=== PATIENT | male | born 1985 | race Caucasian/White ===

== ENCOUNTER 2017-09-17 11:29 | Emergency (ER) | payer OTHER ==
[~2017-09-17] VITALS: Ht 182.9 cm; Wt 172.4 kg
[2017-09-17] MEDS ORDERED: DEPAKOTE ER250 MG (11:40)
[2017-09-17] MEDS ORDERED: KETO10TA2 PO (14:24)
[2017-09-17] MEDS ORDERED: ORPHENADRINE C100 MG PO (14:24)
== END 2017-09-17 15:12 | disposition home or self-care (01) ==
LOC: ER 11:29
DX: R53.1 Weakness (principal); M54.5 Low back pain

== ENCOUNTER 2021-04-05 09:20 | Emergency (ER) | payer OTHER ==
[~2021-04-05] VITALS: Ht 182.9 cm; Wt 181.9 kg
[~2021-04-05 09:20] MED LIST: DEPAKOTE ER250 MG; KETO10TA2 PO; ORPHENADRINE C100 MG PO
[2021-04-05] MEDS ORDERED: HALOPERIDOL2 MG PO (09:27)
[2021-04-05] MEDS ORDERED: HIBICLENS118 ML TOP (13:05)
[2021-04-05] MEDS ORDERED: MUPIROCIN22 GM TOP (13:05)
[2021-04-05] MEDS ORDERED: AMOX-CLAV 875-1 EACH PO (13:05)
== END 2021-04-05 13:15 | disposition home or self-care (01) ==
LOC: ER 09:20
DX: L03.811 Cellulitis of head [any part, except face] (principal)

== ENCOUNTER 2022-11-19 08:52 | Emergency (ER) | payer OTHER ==
[~2022-11-19] VITALS: Ht 185.4 cm; Wt 186.0 kg
[~2022-11-19 08:52] MED LIST changes: +AMOX-CLAV 875-1 EACH PO; +HALOPERIDOL2 MG PO; +HIBICLENS118 ML TOP; +MUPIROCIN22 GM TOP
[2022-11-19] MEDS ORDERED: ATORVASTATIN CA20 MG PO (09:10)
[2022-11-19] MEDS ORDERED: PEPCID AC10 MG PO (09:10)
[2022-11-19] MEDS ORDERED: METFORMIN HCL500 M3 PO (09:11)
[2022-11-19] MEDS ORDERED: ANALPRAM HC 2.530 GM RECTAL (09:25)
[2022-11-19] MEDS ORDERED: DULCOLAX STOOL100 M1 PO (09:25)
== END 2022-11-19 09:34 | disposition home or self-care (01) ==
LOC: ER 08:52
DX: K64.9 Unspecified hemorrhoids (principal)

== ENCOUNTER 2022-11-29 05:51 | Emergency (ER) | payer OTHER ==
[~2022-11-29] VITALS: Ht 185.4 cm; Wt 186.0 kg
[~2022-11-29 05:51] MED LIST changes: +ANALPRAM HC 2.530 GM RECTAL; +ATORVASTATIN CA20 MG PO; +DULCOLAX STOOL100 M1 PO; +METFORMIN HCL500 M3 PO; +PEPCID AC10 MG PO
== END 2022-11-29 07:16 | disposition home or self-care (01) ==
LOC: ER 05:51
DX: K64.8 Other hemorrhoids (principal)

== ENCOUNTER 2023-04-13 08:37 | Emergency (ER) | payer OTHER ==
[~2023-04-13] VITALS: Ht 185.4 cm; Wt 182.8 kg
[2023-04-13 11:48] LABS: HEMATOCRIT 37.9 % (39.0-48.0); HEMOGLOBIN 12.4 g/dL (13-16.00); MEAN CELL VOLUME 80.5 fL (80.0-100.00); MEAN CORPUSCULAR HEMOGLOBIN 26.4 pg (27.00-32.0); MEAN CORPUSCULAR HGB CONC 32.8 g/dl (32.0-36.0); PLATELET COUNT 220 K/uL (150-450); RED BLOOD COUNT 4.71 M/uL (4.00-6.00)
[2023-04-13 12:42] LABS: PH,URINE 5.5 (5.0-8.0); URINE APPEARANCE Cloudy; URINE BILIRRUBIN Negative (NEGATIVE); URINE BLOOD Small; URINE COLOR Yellow; URINE GLUCOSE Negative (NEGATIVE); URINE LEUKOCYTE Negative; URINE NITRATE Negative; URINE PROTEIN Negative (NEGATIVE)
[2023-04-13 12:46] LABS: URINE BACTERIA 36.5 uL (0.0-1933); URINE EPITHELIAL CELLS 13.5 uL (0.0-38.8); URINE RBC 85.2 uL (0.0-20.8); URINE WBC 29.1 uL (0.0-23.2)
[2023-04-13 13:14] LABS: ALBUMIN 3.3 gm/dL (3.4-5.0); BILIRUBIN TOTAL 0.3 mg/dL (0.3-1.2); CALCIUM 9.1 mg/dL (8.5-10.1); CREATININE SERUM 0.93 mg/dL (0.70-1.30); GFR 90.93; GLOBULINA 4.3 G/DL (2.4-3.5); POTASSIUM 4.04 mEq/L (3.5-5.1); TOTAL PROTEIN 7.6 gm/dL (6.4-8.2)
[2023-04-13] MEDS ORDERED: CIPRO500 MG PO (15:36)
[2023-04-13] MEDS ORDERED: IBU800 MG PO (15:36)
== END 2023-04-13 15:58 | disposition home or self-care (01) ==
LOC: ER 08:37
PROVIDERS: General Practice
DX: N39.0 Urinary tract infection, site not specified (principal); E11.9 Type 2 diabetes mellitus without complications; Z79.84 Long term (current) use of oral hypoglycemic drugs

== ENCOUNTER → 2023-06-11 | Emergency (ER) | payer OTHER ==
[~2023-06-11] VITALS: Ht 185.4 cm; Wt 181.4 kg
[~2023-06-11] MED LIST changes: +CIPRO500 MG PO; +IBU800 MG PO; +LACTOBACILLUS ACIDOPHILUS 1 CAP CAP PO STA
[2023-06-11 10:37] LABS: HEMATOCRIT 38.7 % (39.0-48.0); HEMOGLOBIN 12.7 g/dL (13-16.00); MEAN CELL VOLUME 77.8 fL (80.0-100.00); MEAN CORPUSCULAR HEMOGLOBIN 25.5 pg (27.00-32.0); MEAN CORPUSCULAR HGB CONC 32.8 g/dl (32.0-36.0); PLATELET COUNT 231 K/uL (150-450); RED BLOOD COUNT 4.98 M/uL (4.00-6.00); RED CELL DISTRIBUTION WIDTH 16.5 % (11.5-14.5)
[2023-06-11 10:59] LABS: CREATININE SERUM 0.91 mg/dL (0.70-1.30); GFR 93.24; POTASSIUM 4.03 mEq/L (3.5-5.1)
== END | disposition home or self-care (01) ==
LOC: ER 09:27
PROVIDERS: General Practice
DX: R19.7 Diarrhea, unspecified (principal); E11.9 Type 2 diabetes mellitus without complications; Z79.84 Long term (current) use of oral hypoglycemic drugs

== ENCOUNTER 2024-06-01 08:36 | Emergency (ER) | payer OTHER ==
[~2024-06-01] VITALS: Ht 185.4 cm; Wt 182.3 kg
[~2024-06-01 08:36] MED LIST changes: +HALOPERIDO100 MG/1 M IM; -LACTOBACILLUS ACIDOPHILUS 1 CAP CAP PO STA; +METFORMIN HCL1000 M2 PO
[2024-06-01] MEDS ORDERED: LIPITOR20 MG PO (08:47)
[2024-06-01] MEDS ORDERED: KETOROLAC TROMETHAMINE 60 MG VIAL IM ONE ×2 (10:39→10:45)
== END 2024-06-01 14:06 ==
LOC: ER 08:39
DX: M54.59 Other low back pain (principal); M25.562 Pain in left knee
CPT/HCPCS: 72100; 73560; 96372; 99283; J1885

== ENCOUNTER 2024-07-05 07:47 | Emergency (ER) | payer OTHER ==
[~2024-07-05] VITALS: Ht 185.4 cm; Wt 182.3 kg
[~2024-07-05 07:47] MED LIST changes: +LIPITOR20 MG PO
[2024-07-05] MEDS ORDERED: TRADJENTA5 MG (08:04)
[2024-07-05] MEDS ORDERED: TRIAMCINOLONE ACETONIDE 40 MG/ML VIAL IM STA (08:55)
== END 2024-07-05 09:14 | disposition home or self-care (01) ==
LOC: ER 07:49
DX: M25.569 Pain in unspecified knee (principal); E11.9 Type 2 diabetes mellitus without complications; Z79.84 Long term (current) use of oral hypoglycemic drugs

== ENCOUNTER 2024-12-13 09:26 | Emergency (ER) | payer OTHER ==
[~2024-12-13] VITALS: Ht 182.9 cm; Wt 180.5 kg
[~2024-12-13 09:26] MED LIST changes: +TRADJENTA5 MG
== END 2024-12-13 12:00 | disposition home or self-care (01) ==
LOC: ER 09:26
DX: G89.11 Acute pain due to trauma (principal); M79.676 Pain in unspecified toe(s)

== ENCOUNTER 2025-03-26 19:17 | Emergency (ER) | payer OTHER ==
[~2025-03-26] VITALS: Ht 185.4 cm; Wt 181.4 kg
[2025-03-26 20:07] VITALS: BP 142/85; O2SAT 96
[2025-03-26] MEDS ORDERED: KETOROLAC TROMETHAMINE 30 MG VIAL IM ONE (20:30)
[2025-03-26] MEDS ORDERED: GUAIFENESIN/DEXTROMETHORPHAN 100MG/10ML BLIST.PACK PO ONE ×2 (20:30→22:11)
[2025-03-26] MEDS ORDERED: KETOROLAC TROMETHAMINE 30 MG VIAL ONE (22:11)
[2025-03-26 23:51] LABS: BASO % 0.4 % (0.1-1.2); EOS # 0.19 (0.04-0.54); EOS % 1.8 % (0.7-7.0); LYMPH # 2.52 (1.18-3.74); LYMPH % 23.6 % (19.3-53.1); MEAN PLATELET VOLUME 12.00 fl (9.4-12.4); MONO # 0.91 (0.24-0.82); MONO % 8.5 % (4.7-12.5); NEUT # 6.94 (1.56-6.13); NEUT % 65.1 % (34.0-71.1); RED CELL DISTRIBUTION WIDTH 15.7 % (11.6-14.4)
[2025-03-27 00:22] LABS: COVID-19 AG NEGATIVE (NEGATIVE)
[2025-03-27] MEDS ORDERED: ZITHROMAX500 MG PO (00:30)
[2025-03-27] MEDS ORDERED: TUSSIN DM LIQU118 ML PO (00:30)
== END 2025-03-27 00:56 ==
LOC: ER 19:17
PROVIDERS: General Practice
DX: J06.9 Acute upper respiratory infection, unspecified (principal); J00 Acute nasopharyngitis [common cold]; Z20.822 Contact with and (suspected) exposure to COVID-19; E11.9 Type 2 diabetes mellitus without complications; Z79.84 Long term (current) use of oral hypoglycemic drugs